=== PATIENT | female | born 1965 | race Caucasian/White ===

== ENCOUNTER → 2020-05-27 12:07 | Outpatient (BNVA) | payer BC, SELFPAY | PROVIDERS: Visit Provider Nurse Practitioner Family | DX: J06.9 Acute upper respiratory infection, unspecified (principal); Z20.828 Contact with and (suspected) exposure to other viral communicable diseases | CPT/HCPCS: 87635 ==

== ENCOUNTER → 2020-08-11 08:33 | Outpatient (BNVA) | payer BC, SELFPAY | PROVIDERS: Visit Provider Nurse Practitioner Family | DX: E07.9 Disorder of thyroid, unspecified (principal); R73.09 Other abnormal glucose; E78.2 Mixed hyperlipidemia; E55.9 Vitamin D deficiency, unspecified; I10 Essential (primary) hypertension; Z12.31 Encounter for screening mammogram for malignant neoplasm of breast; E53.8 Deficiency of other specified B group vitamins; E03.9 Hypothyroidism, unspecified; Z12.11 Encounter for screening for malignant neoplasm of colon | CPT/HCPCS: 80053; 80061; 81003; 82306; 83036; 83921; 84439; 84443; 84481; 85025; 87086 ==

== ENCOUNTER → 2020-08-23 00:01 | Outpatient (BNVA) | payer BC, SELFPAY | PROVIDERS: Visit Provider Nurse Practitioner Family | DX: R31.9 Hematuria, unspecified (principal) | CPT/HCPCS: 81003 ==

== ENCOUNTER → 2020-09-01 12:01 | Outpatient (BNVA) | payer BC, SELFPAY | PROVIDERS: Visit Provider Family Medicine | DX: Z12.4 Encounter for screening for malignant neoplasm of cervix (principal); Z78.9 Other specified health status | CPT/HCPCS: 88175 ==

== ENCOUNTER → 2020-09-06 09:34 | Outpatient (BNVA) | payer BC, SELFPAY | PROVIDERS: PCP Nurse Practitioner Family; Visit Provider Internal Medicine | DX: Z01.812 Encounter for preprocedural laboratory examination (principal) | CPT/HCPCS: 87635 ==

== ENCOUNTER 2020-09-12 07:30 | Day surgery (SDC) | payer BC, SELFPAY ==
[2020-09-08 12:31] VITALS: BMI 29.9
--- NOTE | 2020-09-12 07:44 | ANES.PREANE2 ---
Pre-Anesthetic Assessment Pre-Anesthetic Assessment: Height/Weight: Height 1.52 m Weight 69.4 kg Preop Diagnosis: screening Proposed Procedure: Operation Date: 09/12/20 09:00 Proposed Procedures p Colonoscopy 46863 z12.11(Not Applicable) - Juni Escobar MD Familial anesthetic complications: NOne Was Beta Shonda taken within 24 hours: N/A Was Clonidine taken within 24 hours: N/A Last intake: > 8 hrs Social: Social History: No alcohol and No tobacco Exam: Pre-Anes Outpt Exam: alert, oriented x 3, clear to auscultation bilaterally and regular rate & rhythm Airway: MP: 4 Dentition: Partials CV/HEM: CV/HEM: HTN Metabolic: Metabolic: Hyperlipidemia and Thyroid Anesthetic Plan: ASA status: 2 Anesthesia: MAC Risk of > 500 ml blood loss (7ml/kg in children): No PFSH Anesthesia PFSH: Medical History Breast cancer screening by mammogram Depression Patient has history of depression and anxiety. Depression is managed with daily Celexa, low dose and patient takes hydroxyzine PRN. Elevated hemoglobin A1c Essential hypertension Hypothyroid Incomplete uterovaginal prolapse Mixed hyperlipidemia Patient has history of mixed hyperlipidema and takes Statin Medication. Vitamin D deficiency Patient has history of Vitamin D deficiency with history of Vitamin D Supplementation. Surgical History History of tubal ligation Family History Mother Diabetes Hypertension Dementia Grandmother Lung disease Female Reproductive History: Para: 3 Date of menopause: 07/16/17 Data Anesthesia Cardiac Studies: No Data to Display
[2020-09-12 07:59] VITALS: BP 120/88; PULSE 78; RESP 18; TEMP 37.1; O2SAT 98
[2020-09-12] MEDS: sodium chloride 0.9% 1,000 ML 30 ML IV (08:11)
--- NOTE | 2020-09-12 09:14 | W.PM.OPSUD ---
Surgery/Procedure H&P Update DATE OF PROCEDURE: September 12, 2020 DATE H&P PERFORMED: 09/01/20 PREOP DIAGNOSIS: screening PLANNED PROCEDURE: Operation Date: 09/12/20 09:00 Proposed Procedures p Colonoscopy 42449 z12.11(Not Applicable) - Juni Escobar MD
[2020-09-12 09:33] VITALS: BP 103/70; PULSE 72; RESP 14; TEMP 36.3; O2SAT 100
[2020-09-12 09:47] VITALS: BP 112/84; PULSE 77; RESP 16; TEMP 36.3; O2SAT 96
--- NOTE | 2020-09-12 14:45 | ANE.PACU2 ---
Inpatient post-anesthesia follow up: Airway intact: Yes Vital signs: Temperature 97.3 F Pulse Rate 77 Respiratory Rate 16 Blood Pressure 112/84 Pulse Oximetry 96 Oxygen Delivery Me thod Room Air Oxygen Flow Rate 5 Fraction of Inspir ed Oxygen Hydration adequate: Yes Nausea and vomiting: No Pain level: 1 Mental status: Baseline
== END 2020-09-12 10:15 | disposition home or self-care (01) ==
PROVIDERS: PCP Nurse Practitioner Family; Visit Provider Internal Medicine
PROC: 0DJD8ZZ Inspection of Lower Intestinal Tract, Via Natural or Artificial Opening Endoscopic (ICD-10-PCS; CPT 45378; principal; 2020-09-12 09:00)
DX: Z12.11 Encounter for screening for malignant neoplasm of colon (principal); K57.30 Diverticulosis of large intestine without perforation or abscess without bleeding; I10 Essential (primary) hypertension; E03.9 Hypothyroidism, unspecified; E78.2 Mixed hyperlipidemia
CPT/HCPCS: 45378; J2704; J7030

== ENCOUNTER 2020-11-07 11:09 | Outpatient (CLI) | payer BC, SELFPAY ==
--- NOTE | 2020-11-07 11:30 | MM_ITS ---
WS: [id number] BILATERAL SCREENING DIGITAL MAMMOGRAM WITH CAD HISTORY: Z12.31 - Encounter for screening mammogram for malignant neoplasm of breast COMPARISON: 06/08/2014 Bilateral CC and MLO views submitted. Computer aided detection analyzed. Breast composition: There are scattered areas of fibroglandular density. No suspicious masses, microc alcifications or architectural distortion. Benign calcifications LEFT breast. MM/[place] [id number] IMPRESSION: BI-RADS: 2-Benign FOLLOW UP: 1 Year Follow-up
== END 2020-11-07 11:10 | disposition home or self-care (01) ==
LOC: RADSHAW 11:14
PROVIDERS: PCP Nurse Practitioner Family; Visit Provider Nurse Practitioner Family
DX: Z12.31 Encounter for screening mammogram for malignant neoplasm of breast (principal)
CPT/HCPCS: 77067

== ENCOUNTER → 2022-03-19 08:58 | Outpatient (BNVA) | payer BC, SELFPAY | PROVIDERS: Visit Provider Nurse Practitioner | DX: E03.9 Hypothyroidism, unspecified (principal); E78.2 Mixed hyperlipidemia; I10 Essential (primary) hypertension; R73.09 Other abnormal glucose; E07.9 Disorder of thyroid, unspecified | CPT/HCPCS: 80053; 80061; 84443; 85025 ==

== ENCOUNTER 2022-05-17 13:50 | Outpatient (CLI) | payer BC, SELFPAY ==
--- NOTE | 2022-05-17 14:30 | US_ITS ---
WS: [email or web address] ULTRASOUND THYROID TECHNIQUE: Ultrasound of the thyroid. CLINICAL INFORMATION: E03.9 - Hypothyroidism, unspecified COMPARISON: None. FINDINGS: Thyroid: Right and left thyroid lobes are small in size with normal homogeneous echotexture. No thyro id nodules are present. Right thyroid lobe: 3.5 cm x 1.5 cm x 1.6 cm RIGHT lobe volume 4.5 cc Left thyroid lobe: 2.9 cm x 1.2 cm x 1.3 cm. LEFT lobe volume 2.4 cc Isthmus: 0.2 mm. Cervical lymphadenopathy: None. US/US thyroid [id number] IMPRESSION: Small volume thyroid gland, LEFT lobe smaller than RIGHT, is otherwise normal i n appearance. No suspicious nodules. Recommend correlation with thyroid functio n studies and hypothyroidism.
== END 2022-05-17 13:51 | disposition home or self-care (01) ==
LOC: RAD 13:51
PROVIDERS: PCP Nurse Practitioner Family; Visit Provider Nurse Practitioner Family
DX: E03.9 Hypothyroidism, unspecified (principal)
CPT/HCPCS: 76536

== ENCOUNTER → 2022-08-30 11:27 | Outpatient (BNVA) | payer BC, SELFPAY | PROVIDERS: PCP Nurse Practitioner Family; Visit Provider Nurse Practitioner Family | DX: J06.9 Acute upper respiratory infection, unspecified (principal); H10.9 Unspecified conjunctivitis | CPT/HCPCS: 87426 ==

== ENCOUNTER → 2022-11-30 10:03 | Outpatient (BNVA) | payer BC, SELFPAY | PROVIDERS: PCP Nurse Practitioner Family; Visit Provider Nurse Practitioner Family | DX: E78.2 Mixed hyperlipidemia (principal); E07.9 Disorder of thyroid, unspecified; Z79.899 Other long term (current) drug therapy; I10 Essential (primary) hypertension | CPT/HCPCS: 80053; 80061; 82550; 84443 ==

== ENCOUNTER 2023-04-17 11:34 | Outpatient (CLI) | payer BC, SELFPAY ==
--- NOTE | 2023-04-17 11:45 | MM_ITS ---
WS: [email or web address] BILATERAL 3D TOMOSYNTHESIS DIGITAL SCREENING MAMMOGRAPHY WITH CAD CLINICAL INFORMATION: SCREENING HISTORY: Screening mammogram. No current complaints. COMPARISON: 2020 TECHNIQUE: Bilateral CC and MLO views. FINDINGS: Scattered fibroglandular densities bilaterally. No suspicious focal mass, asymmetry, calcifications, or architectural distortion. 7 mm asymmetric density LEFT breast more prominent compared to previous. Recommend further evaluation with LEFT breast diagnostic mammography and ultrasound. RIGHT breast is unchanged and unremarkable. IMPRESSION: MM/[place] [id number] BI-RADS: 0-Incomplete: Need additional imaging evaluation FOLLOW UP: Need Additional Imaging Recommend further evaluation with LEFT breast diagnostic mammography and ultras ound if persistent.
== END 2023-04-17 11:35 | disposition home or self-care (01) ==
LOC: MOBLMAM 11:39
PROVIDERS: PCP Nurse Practitioner Family; Visit Provider Nurse Practitioner Family
DX: Z12.31 Encounter for screening mammogram for malignant neoplasm of breast (principal)
CPT/HCPCS: 77063; 77067

== ENCOUNTER → 2023-12-16 11:11 | Outpatient (BNVA) | payer BC, SELFPAY | PROVIDERS: PCP Nurse Practitioner Family; Visit Provider Nurse Practitioner Family | DX: E78.2 Mixed hyperlipidemia (principal); E03.9 Hypothyroidism, unspecified | CPT/HCPCS: 80053; 80061; 84443 ==

== ENCOUNTER → 2024-08-03 11:43 | Outpatient (BNVA) | payer BC, SELFPAY | PROVIDERS: PCP Nurse Practitioner Family; Visit Provider Nurse Practitioner Family | DX: I10 Essential (primary) hypertension (principal); R10.9 Unspecified abdominal pain; R31.9 Hematuria, unspecified; E78.2 Mixed hyperlipidemia; R73.09 Other abnormal glucose; E55.9 Vitamin D deficiency, unspecified; E53.8 Deficiency of other specified B group vitamins; D64.9 Anemia, unspecified | CPT/HCPCS: 74018; 80053; 80061; 81003; 82306; 82607; 82746; 83036; 83550; 84443; 85025 ==

== ENCOUNTER 2024-09-16 09:20 | Outpatient (CLI) | payer BC, SELFPAY ==
--- NOTE | 2024-09-16 09:20 | MM_ITS ---
WS: [id number] BILATERAL SCREENING DIGITAL TOMOSYNTHESIS MAMMOGRAM WITH CAD HISTORY: Z12.31 - Encounter for screening mammogram for malignant ... COMPARISON: 04/17/2023, 11/07/2020 Bilateral CC and MLO views with tomosynthesis and synthetic mammography submitted. Computer aided detection analyzed. Breast composition: There are scattered areas of fibroglandular density. No suspicious masses, microcalcifications or architectural distortion. Benign lymph node upper outer quadrant RIGHT breast. Benign calcification LEFT breast. MM/MM scr BI tomosynthesis [id number] IMPRESSION: BI-RADS: 2 - Benign. FOLLOW UP: 1 Year Follow-up
== END 2024-09-16 09:21 | disposition home or self-care (01) ==
PROVIDERS: PCP Nurse Practitioner Family; Visit Provider Nurse Practitioner Family
DX: Z12.31 Encounter for screening mammogram for malignant neoplasm of breast (principal); R92.323 Mammographic fibroglandular density, bilateral breasts; R59.0 Localized enlarged lymph nodes; R92.1 Mammographic calcification found on diagnostic imaging of breast
CPT/HCPCS: 77063; 77067

== ENCOUNTER → 2024-12-15 09:40 | Outpatient (BNVA) | payer BC, SELFPAY | PROVIDERS: PCP Nurse Practitioner Family; Visit Provider Nurse Practitioner Family | DX: I10 Essential (primary) hypertension (principal); E78.2 Mixed hyperlipidemia; R73.09 Other abnormal glucose | CPT/HCPCS: 80053; 80061; 82306; 83036 ==

== ENCOUNTER → 2025-02-17 15:51 | Outpatient (BNVA) | payer BC, SELFPAY | PROVIDERS: PCP Nurse Practitioner Family; Visit Provider Nurse Practitioner Family | DX: Z12.4 Encounter for screening for malignant neoplasm of cervix (principal) | CPT/HCPCS: 87624 ==